=== PATIENT | female | born 1945 | race Two or more races ===

== ENCOUNTER → 2016-03-29 | Outpatient (CLI) | payer MEDICARE, OTHER ==
[~2016-03-29] MED LIST: ASPI81TA27 PO; ATEN-60 PO; GLIP-115 PO; LISI40TA PO; MELA3TAB42 PO; MELO-85 PO; METF1000 PO; RANITAB8 PO; SIMV10TA84 PO; TRIA0.1O TOP; [UNRECOGNIZED DRUG - CODE] PO
[2016-03-29 08:50] LABS: Basophils # (auto) 0 uL; Basophils % (auto) 0.4 % (0.0-2.0); Eosinophils # (auto) 0.3 uL; Eosinophils % (auto) 5.6 % (0.0-7.0); Hematocrit 47.1 % (36.0-46.0); Hemoglobin 15.5 g/dL (12.2-16.2); Lymphocytes # (auto) 1.5 uL; Lymphocytes % (auto) 32.3 % (10.0-50.0); Mean Corpuscular Hemoglobin 31.4 pg (28.0-32.0); Mean Platelet Volume 9.5 fL (7.4-10.4); Monocytes # (auto) 0.3 uL; Monocytes % (auto) 7.1 % (0.0-12.0); Neutrophils # (auto) 2.5 uL; Neutrophils % (auto) 54.6 % (37.0-80.0); Platelet Count (auto) 172 10^3/uL (140-450); Red Cell Distribution Width 13.3 % (11.6-16.0); White Blood Cell 4.6 10^3/uL (4.4-10.8)
[2016-03-29 09:04] LABS: Albumin 3.8 g/dL (3.4-5.0); BUN/Creatinine Ratio 24.6; Bilirubin, Total 0.7 mg/dL (0.2-1.0); Calcium 8.8 mg/dL (8.5-10.1); Potassium 4.2 mmol/L (3.5-5.1); Total Protein 6.9 g/dL (6.4-8.2)
== END | disposition home or self-care (01) ==
LOC: LAB 07:11
PROVIDERS: ATTEND Internal Medicine
DX: I10 Essential (primary) hypertension (principal); E11.9 Type 2 diabetes mellitus without complications; F41.1 Generalized anxiety disorder; E78.5 Hyperlipidemia, unspecified
CPT/HCPCS: 36415; 80053; 80061; 83036; 84443; 85025

== ENCOUNTER → 2016-12-09 | Day surgery (SDC) | payer MEDICARE ==
[2016-12-06 12:45] LABS: Basophils # (auto) 0 uL; Basophils % (auto) 0.5 % (0.0-2.0); Eosinophils # (auto) 0.2 uL; Eosinophils % (auto) 3.8 % (0.0-7.0); Hemoglobin 15.1 g/dL (12.2-16.2); Lymphocytes # (auto) 1.5 uL; Lymphocytes % (auto) 30.2 % (10.0-50.0); Mean Corpuscular Hemoglobin 32.6 pg (28.0-32.0); Mean Corpuscular Hgb Conc. 34.3 g/dL (32.0-36.0); Mean Corpuscular Volume 95.2 fL (80.0-100.0); Mean Platelet Volume 8.5 fL (6.9-10.8); Monocytes # (auto) 0.3 uL; Neutrophils # (auto) 2.8 uL; Neutrophils % (auto) 58.5 % (37.0-80.0); Nucleated Red Blood Cells % 0.1 %; Platelet Count (auto) 128 10^3/uL (140-450); White Blood Cell 4.8 10^3/uL (4.4-10.8)
[2016-12-06 12:57] LABS: INR 0.97 (0.9-1.15); Partial Thromboplastin Time 24.7 sec (22.64-33.71); Prothrombin Time 10.6 sec (9.37-12.3)
[~2016-12-09] VITALS: Ht 162.6 cm; Wt 95.3 kg
[~2016-12-09] MED LIST changes: -GLIP-115 PO; +SODIUM CHLORIDE LOCK 10 ML ONE; +diphenhdrAMINE HCL 50 MG/1 ML VL ONE
[2016-12-09] MEDS: fentaNYL CITRATE 100 MCG/2 ML VL ONE ×2 (09:09→09:12)
[2016-12-09] MEDS: MIDAZOLAM HCL 5 MG/ML-1ML VIAL ONE ×2 (09:09→09:12)
[2016-12-09 09:57] VITALS: BP 157/83
== END | disposition home or self-care (01) ==
LOC: GI 08:00
PROVIDERS: ATTEND Internal Medicine Gastroenterology
DX: D12.5 Benign neoplasm of sigmoid colon (principal); K62.1 Rectal polyp; K57.30 Diverticulosis of large intestine without perforation or abscess without bleeding; K64.8 Other hemorrhoids; K63.89 Other specified diseases of intestine; E11.9 Type 2 diabetes mellitus without complications; Z90.710 Acquired absence of both cervix and uterus
CPT/HCPCS: 36415; 45380; 82962; 85025; 85610; 85730; 88305; J1200; J2250; J3010; J7030

== ENCOUNTER → 2017-01-24 | Outpatient (CLI) | payer MEDICARE ==
[~2017-01-24] MED LIST changes: -MELO-85 PO; +MELO1TAB73 PO; -SODIUM CHLORIDE LOCK 10 ML ONE; -diphenhdrAMINE HCL 50 MG/1 ML VL ONE
[2017-01-24 12:26] LABS: Urine Bacteria NONE SEEN /hpf (None Seen); Urine Blood Negative /uL (Negative); Urine Mucus FEW (None Seen); Urine Specific Gravity 1.036 (1.001-1.035); Urine WBC 1 /hpf (0 - 5)
[2017-01-24 13:17] LABS: Albumin 3.8 g/dL (3.4-5.0); BUN/Creatinine Ratio 25.5; Calcium 8.8 mg/dL (8.5-10.1)
[2017-01-24 13:19] LABS: Bilirubin, Total 1.1 mg/dL (0.2-1.0)
== END | disposition home or self-care (01) ==
LOC: LAB 11:36
PROVIDERS: ATTEND Internal Medicine
DX: I10 Essential (primary) hypertension (principal); E11.9 Type 2 diabetes mellitus without complications; E55.9 Vitamin D deficiency, unspecified; N39.0 Urinary tract infection, site not specified
CPT/HCPCS: 36415; 80053; 81001; 82043; 82306; 83036; 86803

== ENCOUNTER → 2017-05-25 | Outpatient (CLI) | payer MEDICARE ==
[2017-05-25 10:43] LABS: Basophils # (auto) 0 uL; Basophils % (auto) 0.5 % (0.0-2.0); Eosinophils # (auto) 0.1 uL; Eosinophils % (auto) 2.9 % (0.0-7.0); Hematocrit 46.2 % (36.0-46.0); Hemoglobin 15.7 g/dL (12.2-16.2); Lymphocytes # (auto) 1.1 uL; Lymphocytes % (auto) 24.4 % (10.0-50.0); Mean Corpuscular Hemoglobin 32.9 pg (28.0-32.0); Mean Corpuscular Hgb Conc. 34.1 g/dL (32.0-36.0); Mean Corpuscular Volume 96.5 fL (80.0-100.0); Monocytes # (auto) 0.3 uL; Monocytes % (auto) 6.3 % (0.0-12.0); Neutrophils % (auto) 65.9 % (37.0-80.0); Nucleated Red Blood Cells % 0.2 %; Platelet Count (auto) 142 10^3/uL (140-450); Red Blood Cells 4.79 10^6/uL (4.0-5.20); Red Cell Distribution Width 13.4 % (11.8-14.3); White Blood Cell 4.6 10^3/uL (4.4-10.8)
[2017-05-25 10:59] LABS: BUN/Creatinine Ratio 32.8; Calcium 9.4 mg/dL (8.5-10.1); Potassium 4.3 mmol/L (3.5-5.1); Total Protein 7.1 g/dL (6.4-8.2)
== END | disposition home or self-care (01) ==
LOC: LAB 10:08
PROVIDERS: ATTEND Physician Assistant
DX: I10 Essential (primary) hypertension (principal); E11.65 Type 2 diabetes mellitus with hyperglycemia; K58.0 Irritable bowel syndrome with diarrhea; E78.5 Hyperlipidemia, unspecified
CPT/HCPCS: 36415; 80053; 80061; 83036; 85025

== ENCOUNTER → 2018-10-12 | Outpatient (CLI) | payer MEDICARE ==
[~2018-10-12] MED LIST changes: +ASPI-404 PO; -ASPI81TA27 PO
[2018-10-12 10:32] LABS: Basophils # (auto) 0 uL; Basophils % (auto) 0.9 % (0.0-2.0); Eosinophils # (auto) 0.5 uL; Eosinophils % (auto) 9.7 % (0.0-7.0); Hematocrit 44.6 % (36.0-46.0); Hemoglobin 15.3 g/dL (12.2-16.2); Lymphocytes # (auto) 1.3 uL; Lymphocytes % (auto) 28.5 % (10.0-50.0); Mean Corpuscular Hemoglobin 32.9 pg (28.0-32.0); Mean Corpuscular Hgb Conc. 34.4 g/dL (32.0-36.0); Mean Corpuscular Volume 95.5 fL (80.0-100.0); Monocytes # (auto) 0.3 uL; Monocytes % (auto) 5.9 % (0.0-12.0); Neutrophils # (auto) 2.6 uL; Nucleated Red Blood Cells % 0.1 %; Platelet Count (auto) 130 10^3/uL (140-450); Red Blood Cells 4.67 10^6/uL (4.0-5.20); Red Cell Distribution Width 13.1 % (11.8-14.3); White Blood Cell 4.7 10^3/uL (4.4-10.8)
[2018-10-12 10:52] LABS: Albumin 3.7 g/dL (3.4-5.0); Potassium 4.1 mmol/L (3.5-5.1)
[2018-10-12 10:57] LABS: Bilirubin, Total 0.9 mg/dL (0.2-1.0); Total Protein 6.8 g/dL (6.4-8.2)
[2018-10-12 11:10] LABS: Urine Bacteria NONE SEEN /hpf (None Seen); Urine Blood Negative /uL (Negative); Urine Specific Gravity 1.033 (1.001-1.035); Urine WBC 20 /hpf (0 - 5)
== END | disposition home or self-care (01) ==
LOC: LAB 10:09
PROVIDERS: ATTEND Physician Assistant
DX: E78.5 Hyperlipidemia, unspecified (principal); I42.9 Cardiomyopathy, unspecified; E11.65 Type 2 diabetes mellitus with hyperglycemia; D69.6 Thrombocytopenia, unspecified; I10 Essential (primary) hypertension
CPT/HCPCS: 36415; 80053; 80061; 81001; 83036; 85025

== ENCOUNTER → 2020-12-24 | Outpatient (CLI) | payer OTHER ==
[~2020-12-24] MED LIST changes: -ASPI-404 PO; +ASPI-543 PO; -LISI40TA PO; +LISI40TA11 PO
== END | disposition home or self-care (01) ==
LOC: LAB 12:31
PROVIDERS: ATTEND Nurse Practitioner Family
DX: Z20.822 Contact with and (suspected) exposure to COVID-19 (principal)
CPT/HCPCS: C9803; U0003

== ENCOUNTER → 2021-04-06 | Outpatient (CLI) | payer OTHER | END | disposition home or self-care (01) | LOC: XYW 10:42 | PROVIDERS: ATTEND Internal Medicine | DX: I05.0 Rheumatic mitral stenosis (principal); I35.0 Nonrheumatic aortic (valve) stenosis | CPT/HCPCS: 93306 ==

== ENCOUNTER → 2021-04-26 | Outpatient (CLI) | payer OTHER ==
[~2021-04-26] VITALS: Ht 162.6 cm; Wt 84.8 kg
[~2021-04-26] MED LIST changes: +ADENOSINE 71 MG in GIVE UN-DILUTED 0 ML IV STA
[2021-04-26 09:44] VITALS: BP 114/56
== END | disposition home or self-care (01) ==
LOC: XY 08:24
PROVIDERS: ATTEND Internal Medicine
DX: I10 Essential (primary) hypertension (principal); R06.02 Shortness of breath; R94.31 Abnormal electrocardiogram [ECG] [EKG]; I44.7 Left bundle-branch block, unspecified; Z87.09 Personal history of other diseases of the respiratory system
CPT/HCPCS: 78452; 93017; A9500; J0153

== ENCOUNTER → 2021-11-15 | Outpatient (CLI) | payer OTHER ==
[~2021-11-15] MED LIST changes: -ADENOSINE 71 MG in GIVE UN-DILUTED 0 ML IV STA
[2021-11-15 10:42] LABS: Basophils # (auto) 0 10 ^3/uL (0-0.2); Basophils % (auto) 0.7 % (0.0-2.0); Eosinophils # (auto) 0.3 10 ^3/uL (0-0.8); Eosinophils % (auto) 5.8 % (0.0-7.0); Hematocrit 44.6 % (36.0-46.0); Hemoglobin 15.1 g/dL (12.2-16.2); Lymphocytes # (auto) 1.3 10 ^3/uL (0.4-5.4); Lymphocytes % (auto) 26.6 % (10.0-50.0); Mean Corpuscular Hemoglobin 32.3 pg (28.0-32.0); Mean Corpuscular Hgb Conc. 33.9 g/dL (32.0-36.0); Mean Corpuscular Volume 95.3 fL (80.0-100.0); Monocytes # (auto) 0.4 10 ^3/uL (0-1.3); Monocytes % (auto) 7.4 % (0.0-12.0); Neutrophils # (auto) 2.8 10 ^3/uL (1.6-8.6); Neutrophils % (auto) 59.5 % (37.0-80.0); Red Blood Cells 4.68 10^6/uL (4.0-5.20); Red Cell Distribution Width 13.8 % (11.8-14.3); White Blood Cell 4.8 10^3/uL (4.4-10.8)
[2021-11-15 11:13] LABS: Albumin 3.9 g/dL (3.4-5.0); Calcium 9.5 mg/dL (8.5-10.1); Potassium 4.4 mmol/L (3.5-5.1)
[2021-11-15 11:17] LABS: BUN/Creatinine Ratio 31.1; Bilirubin, Total 0.7 mg/dL (0.2-1.0); Total Protein 7.1 g/dL (6.4-8.2)
== END | disposition home or self-care (01) ==
LOC: LAB 10:07
PROVIDERS: ATTEND Nurse Practitioner Family
DX: I10 Essential (primary) hypertension (principal); Z00.00 Encounter for general adult medical examination without abnormal findings; F41.1 Generalized anxiety disorder; E11.9 Type 2 diabetes mellitus without complications
CPT/HCPCS: 36415; 80053; 80061; 83036; 84439; 84443; 85025

== ENCOUNTER → 2022-01-06 | Outpatient (CLI) | payer OTHER | END | disposition home or self-care (01) | LOC: LAB 13:07 | PROVIDERS: ATTEND Urology | DX: R31.9 Hematuria, unspecified (principal); N39.0 Urinary tract infection, site not specified; R32 Unspecified urinary incontinence ==

== ENCOUNTER → 2022-02-16 | Outpatient (CLI) | payer OTHER ==
[2022-02-16 19:04] LABS: Urine Blood Negative /uL (Negative)
[2022-02-16 19:05] LABS: Urine Bacteria MODERATE /hpf (None Seen)
[2022-02-16 19:07] LABS: Urine Budding Yeast Few /hpf (None Seen)
== END | disposition home or self-care (01) ==
LOC: LAB 11:48
PROVIDERS: ATTEND Urology
DX: E11.65 Type 2 diabetes mellitus with hyperglycemia (principal); R31.0 Gross hematuria; N39.0 Urinary tract infection, site not specified
CPT/HCPCS: 81001; 87086

== ENCOUNTER → 2022-02-18 | Outpatient (CLI) | payer OTHER ==
[2022-02-18 08:33] LABS: Urine Bacteria None Seen /hpf (None Seen)
[2022-02-18 08:59] LABS: Urine Blood Negative /uL (Negative); Urine Specific Gravity 1.036 (1.001-1.035)
== END | disposition home or self-care (01) ==
LOC: LAB 08:30
PROVIDERS: ATTEND Urology
DX: R31.0 Gross hematuria (principal); N39.0 Urinary tract infection, site not specified
CPT/HCPCS: 81001; 87086

== ENCOUNTER 2022-09-08 06:29 | Day surgery (SDC) | payer OTHER ==
[2022-08-12 10:56] LABS: Basophils # (auto) 0 10 ^3/uL (0-0.2); Basophils % (auto) 0.7 % (0.0-2.0); Eosinophils # (auto) 0.8 10 ^3/uL (0-0.8); Eosinophils % (auto) 10.9 % (0.0-7.0); Hematocrit 43.6 % (36.0-46.0); Hemoglobin 15.5 g/dL (12.2-16.2); Lymphocytes # (auto) 1.2 10 ^3/uL (0.4-5.4); Mean Corpuscular Hemoglobin 33.2 pg (28.0-32.0); Mean Corpuscular Hgb Conc. 35.5 g/dL (32.0-36.0); Mean Corpuscular Volume 93.5 fL (80.0-100.0); Monocytes # (auto) 0.4 10 ^3/uL (0-1.3); Monocytes % (auto) 5.8 % (0.0-12.0); Neutrophils # (auto) 4.9 10 ^3/uL (1.6-8.6); Neutrophils % (auto) 66.6 % (37.0-80.0); Nucleated Red Blood Cells % 0.9 %; Red Blood Cells 4.66 10^6/uL (4.0-5.20); Red Cell Distribution Width 13.1 % (11.8-14.3); White Blood Cell 7.4 10^3/uL (4.4-10.8)
[2022-08-12 10:59] LABS: Urine Bacteria FEW /hpf (None Seen); Urine Blood Negative /uL (Negative); Urine Specific Gravity 1.028 (1.001-1.035); Urine WBC 55 /hpf (0 - 5)
[2022-08-12 11:06] LABS: Albumin 3.8 g/dL (3.4-5.0); Calcium 9.1 mg/dL (8.5-10.1); Potassium 3.9 mmol/L (3.5-5.1)
[2022-08-12 11:10] LABS: BUN/Creatinine Ratio 26.5 (10.0-20.0); Bilirubin, Total 0.7 mg/dL (0.2-1.0); Total Protein 7.2 g/dL (6.4-8.2)
[2022-08-12 11:16] LABS: INR 0.97 (0.9-1.15); Partial Thromboplastin Time 25.9 sec (24.6-33.4)
[2022-09-06 15:59] LABS: Urine Bacteria NONE SEEN /hpf (None Seen); Urine Blood TRACE /uL (Negative); Urine Specific Gravity 1.016 (1.001-1.035); Urine WBC 62 /hpf (0 - 5)
[2022-09-06 16:00] LABS: Basophils # (auto) 0 10 ^3/uL (0-0.2); Basophils % (auto) 0.8 % (0.0-2.0); Eosinophils # (auto) 0.4 10 ^3/uL (0-0.8); Eosinophils % (auto) 7.1 % (0.0-7.0); Hematocrit 44.7 % (36.0-46.0); Hemoglobin 15.2 g/dL (12.2-16.2); Lymphocytes # (auto) 1.7 10 ^3/uL (0.4-5.4); Lymphocytes % (auto) 28.8 % (10.0-50.0); Mean Corpuscular Hemoglobin 32.3 pg (28.0-32.0); Monocytes # (auto) 0.3 10 ^3/uL (0-1.3); Monocytes % (auto) 5.9 % (0.0-12.0); Neutrophils # (auto) 3.4 10 ^3/uL (1.6-8.6); Neutrophils % (auto) 57.4 % (37.0-80.0); Nucleated Red Blood Cells % 0.2 %; Red Blood Cells 4.71 10^6/uL (4.0-5.20); Red Cell Distribution Width 14.3 % (11.8-14.3); White Blood Cell 5.9 10^3/uL (4.4-10.8)
[2022-09-06 16:15] LABS: Partial Thromboplastin Time 25.5 sec (24.6-33.4)
[2022-09-06 16:20] LABS: Calcium 8.8 mg/dL (8.5-10.1); Potassium 4.1 mmol/L (3.5-5.1)
[2022-09-06 16:22] LABS: Bilirubin, Total 0.8 mg/dL (0.2-1.0); Total Protein 7.2 g/dL (6.4-8.2)
[~2022-09-08] VITALS: Ht 162.6 cm; Wt 81.6 kg
[~2022-09-08 06:29] MED LIST changes: +EMPA1TAB3 PO; -LISI40TA11 PO; +LISI40TA16 PO; -MELA3TAB42 PO; -MELO1TAB73 PO; +MELO7.5T7 PO; +PANT40TA2 PO; -RANITAB8 PO; +SIMV10TA20 PO; -SIMV10TA84 PO; +VENL1TAB97 PO; -[UNRECOGNIZED DRUG - CODE] PO
[2022-09-08] MEDS ORDERED: LIDOCAINE W/ EPINEPHRINE 2% INJ 20ML VIAL ONE (07:08)
[2022-09-08] MEDS ORDERED: CIPROFLOXACIN 400MG/200ML 200 ML IV ONE (07:29)
[2022-09-08] MEDS ORDERED: MIDAZOLAM HCL 2MG/2ML 2ml VIAL (1mg/ml) ONE (07:44)
[2022-09-08] MEDS ORDERED: fentaNYL CITRATE 100 MCG/2 ML VL ONE (07:44)
[2022-09-08] MEDS ORDERED: MEPERIDINE HCL (25 MG/ML) 1ML VIAL ONE (07:44)
[2022-09-08] MEDS ORDERED: PROPOFOL 10 MG/ML 20 ML IV ONE (08:03)
[2022-09-08] MEDS ORDERED: DexAMETHasone SOD PHOS 10MG/1ML VIAL INJ ONE (08:03)
[2022-09-08] MEDS ORDERED: ePHEDrine SULFATE 50 MG/ML AMP IV PRN (08:30)
[2022-09-08] MEDS ORDERED: LABETALOL HCL 5 MG/ML 4ML SYRINGE IV PRN (08:30)
[2022-09-08] MEDS ORDERED: MIDAZOLAM HCL 2MG/2ML 2ml VIAL (1mg/ml) IV PRN (08:30)
[2022-09-08] MEDS ORDERED: fentaNYL CITRATE 100 MCG/2 ML VL IV PRN (08:30)
[2022-09-08] MEDS ORDERED: MORPHINE SULFATE INJ 2 MG/ml SYRG IV PRN (08:30)
[2022-09-08] MEDS ORDERED: ONDANSETRON HCL 4 MG/2 ML VIAL IV PRN (08:30)
[2022-09-08 09:15] VITALS: BP 134/56
== END 2022-09-08 09:30 | disposition home or self-care (01) ==
LOC: SUR 06:29
PROVIDERS: ATTEND Urology
DX: N39.3 Stress incontinence (female) (male) (principal); I10 Essential (primary) hypertension; E11.9 Type 2 diabetes mellitus without complications; Z79.84 Long term (current) use of oral hypoglycemic drugs; Z79.899 Other long term (current) drug therapy
CPT/HCPCS: 36415; 51715; 74018; 76000; 80053; 81001; 82962; 85025; 85610; 85730; 87086; 87088; 87186; J0744; J1100; J2175; J2250; J2704; J3010; L8606

== ENCOUNTER → 2022-11-01 | Outpatient (CLI) | payer OTHER ==
[2022-11-01 10:34] LABS: Hematocrit 44.4 % (36.0-46.0); Mean Corpuscular Hemoglobin 32.3 pg (28.0-32.0); Mean Corpuscular Hgb Conc. 33.8 g/dL (32.0-36.0); Mean Corpuscular Volume 95.8 fL (80.0-100.0); Red Blood Cells 4.64 10^6/uL (4.0-5.20); Red Cell Distribution Width 13.2 % (11.8-14.3); White Blood Cell 5.5 10^3/uL (4.4-10.8)
[2022-11-01 10:47] LABS: Band Neutrophils % (manual) 0; Basophils % (manual) 0 (0.0-2.0); Metamyelocytes % 0; Myelocytes % 0
[2022-11-01 10:48] LABS: Blast Cells 0; Promyelocytes % 0; Reactive Lymphocytes 0
[2022-11-01 12:00] LABS: Albumin 3.7 g/dL (3.4-5.0); BUN/Creatinine Ratio 26.1 (10.0-20.0); Bilirubin, Total 0.6 mg/dL (0.2-1.0); Calcium 9.2 mg/dL (8.5-10.1); Potassium 4.5 mmol/L (3.5-5.1); Total Protein 6.6 g/dL (6.4-8.2)
[2022-11-01 12:43] LABS: Micro Albumin 10.5 mg/L (0-30.0)
[2022-11-01 14:01] LABS: Eosinophils % (manual) 20 (0-7); Lymphocytes % (manual) 17 (10.0-50.0); Monocytes % (manual) 5 (0-12); Platelet Estimate Decreased
== END | disposition home or self-care (01) ==
LOC: LAB 09:58
DX: E11.39 Type 2 diabetes mellitus with other diabetic ophthalmic complication (principal); E78.5 Hyperlipidemia, unspecified; E66.01 Morbid (severe) obesity due to excess calories
CPT/HCPCS: 36415; 80053; 80061; 82043; 82306; 82570; 83036; 84439; 84443; 85007; 85027

== ENCOUNTER → 2023-12-27 | Outpatient (CLI) | payer OTHER ==
[2023-12-27 12:02] LABS: Basophils # (auto) 0.1 10 ^3/uL (0-0.2); Basophils % (auto) 1.2 % (0.0-2.0); Eosinophils # (auto) 0.3 10 ^3/uL (0-0.8); Eosinophils % (auto) 6.8 % (0.0-7.0); Hematocrit 44.9 % (36.0-46.0); Hemoglobin 15.6 g/dL (12.2-16.2); Lymphocytes # (auto) 1.3 10 ^3/uL (0.4-5.4); Lymphocytes % (auto) 27.2 % (10.0-50.0); Mean Corpuscular Hemoglobin 33.1 pg (28.0-32.0); Mean Corpuscular Hgb Conc. 34.8 g/dL (32.0-36.0); Monocytes # (auto) 0.3 10 ^3/uL (0-1.3); Monocytes % (auto) 6.7 % (0.0-12.0); Neutrophils # (auto) 2.7 10 ^3/uL (1.6-8.6); Neutrophils % (auto) 58.1 % (37.0-80.0); Nucleated Red Blood Cells % 0.1 %; Platelet Count (auto) 137 10^3/uL (140-450); Red Blood Cells 4.73 10^6/uL (4.0-5.20); Red Cell Distribution Width 13.7 % (11.8-14.3); White Blood Cell 4.7 10^3/uL (4.4-10.8)
[2023-12-27 12:23] LABS: Alanine Aminotransferase 17 U/L (7-40); Alkaline Phosphatase 58 U/L (46-116); Anion Gap 7 (5-15); BUN/Creatinine Ratio 20.8 (10.0-20.0); Blood Urea Nitrogen 15 mg/dL (9-23); Calcium 10.1 mg/dL (8.7-10.4); Carbon Dioxide 26 mmol/L (20-31); Chloride 108 mmol/L (98-107); Glucose 199 mg/dL (74-106); LDL Cholesterol 68 mg/dL (< 100); Potassium 4.6 mmol/L (3.5-5.1); Sodium 141 mmol/L (136-145); Triglycerides 58 mg/dL (< 150)
[2023-12-27 12:24] LABS: Albumin 4.3 g/dL (3.2-4.8); Aspartate Aminotransferase 14 U/L (13-40); Cholesterol 125 mg/dL (< 200)
[2023-12-27 12:25] LABS: Bilirubin, Total 0.7 mg/dL (0.2-1.0); HDL Cholesterol 48 mg/dL (40-59); Total Protein 6.4 g/dL (5.7-8.2)
[2023-12-27 13:31] LABS: Creatinine, Urine 26.95 mg/dL (30.0-125.0)
== END | disposition home or self-care (01) ==
LOC: LAB 11:21
PROVIDERS: ATTEND Nurse Practitioner Family
DX: E11.65 Type 2 diabetes mellitus with hyperglycemia (principal); I42.9 Cardiomyopathy, unspecified; E66.9 Obesity, unspecified
CPT/HCPCS: 36415; 80053; 80061; 82043; 82306; 82570; 83036; 84443; 85025

== ENCOUNTER → 2024-04-01 | Outpatient (CLI) | payer OTHER ==
[2024-04-01 13:04] LABS: Urine Bacteria FEW /hpf (None Seen); Urine Blood 2+ /uL (Negative); Urine Clarity Turbid (Clear); Urine Color Colorless (Yellow); Urine Protein, UAD 1+ (Negative); Urine Specific Gravity 1.034 (1.001-1.035); Urine Squamous Epithelial Cell None Seen /hpf (<5); Urine Urobilinogen Normal (Negative); Urine WBC 695 /hpf (0 - 5); Urine WBC Clumps PRESENT /hpf (None Seen); Urine pH 5.5 (5.0-9.0)
== END | disposition home or self-care (01) ==
LOC: LAB 06:42
PROVIDERS: ATTEND Registered Nurse
DX: R82.90 Unspecified abnormal findings in urine (principal); R30.9 Painful micturition, unspecified
CPT/HCPCS: 81001; 87086

== ENCOUNTER 2024-10-21 13:12 | Inpatient (IN) | payer OTHER ==
[~2024-10-21] VITALS: Ht 162.6 cm; Wt 74.0 kg
--- NOTE | 2024-10-21 13:53 | ED.PDOC ---
SOB-HPI HPI Comments This is a 79 year old female presenting to the ED with chief complaint of SOB. Patient reports that she has been experiencing dizziness with associated generalized weakness since , however she stated to have SOB since last Monday. Patient states that her symptoms resolved themselves over time, but returned today. Patient denies any chest pain, headache, N/V, hemoptysis, nasal congestion, fever, or chills. Chief Complaint: Shortness of Breath Time Seen by MD: 13:51 Reviewed notes: Nurses Notes, Medications, Allergies Information Source: Patient Mode of Arrival: Ambulatory Severity: Moderate Timing: Days Duration: Since onset Context: At Rest PE Risk Factors: None History of: None Prehospital treatment: None Modifying Factors: Nothing Past Medical History PAST MEDICAL HISTORY: Cancer, DM, High Lipids, HTN Surgical History: Hysterectomy PLATE CLEANER History: Denies all PLATE CLEANER Hx Family History Family History: Reviewed,noncontributory to illness Social History Smoker: Non-Smoker Alcohol: Denies ETOH Use Drugs: Denies Drug Use Lives In: Home Constitutional: reports: weakness; denies: chills, diaphoresis, fatigue, fever, malaise, sweats, others EENTM: denies: blurred vision, double vision, ear bleeding, ear discharge, ear drainage, ear pain, ear ringing, eye pain, eye redness, hearing loss, mouth pain, mouth swelling, nasal discharge, nose bleeding, nose congestion, nose pain, photophobia, tearing, throat pain, throat swelling, voice changes, others Respiratory: reports: shortness of breath; denies: cough, hemoptysis, orthopnea, SOB at rest, SOB with excertion, stridor, wheezing, others Cardiovascular: denies: chest pain, dizzy spells, diaphoresis, Dyspnea on exertion, edema, irregular heart beat, left arm pain, lightheadedness, palpitations, PND, syncope, others Gastrointestinal: denies: abdomen distended, abdominal pain, blood streaked bowels, constipated, diarrhea, dysphagia, difficulty swallowing, hematemesis, melena, nausea, poor appetite, poor fluid intake, rectal bleeding, rectal pain, vomiting, others Genitourinary: denies: abnormal vagina bleeding, burning, dyspareunia, dysuria, flank pain, frequency, hematuria, incontinence, pain, , vagina discharge, urgency, others Neurological: reports: dizziness; denies: fainting, headache, left sided numbness, left sided weakness, numbness, paresthesia, pre-existing deficit, right sided numbness, right sided weakness, seizure, speech problems, tingling, tremors, weakness, others Musculoskeletal: denies: back pain, gout, joint pain, joint swelling, muscle pain, muscle stiffness, neck pain, others Integumetry: denies: bruises, change in color, change in hair/nails, dryness, laceration, lesions, lumps, rash, wounds, others Allergic/Immunocompromised: denies: Difficulty Healing, Frequent Infections, Hives, Itching, others Hematologic/Lymphatic: denies: anemia, blood clots, easy bleeding, easy bruising, swollen glands, others Endocrine: denies: excessive hunger, excessive sweating, excessive thirst, excessive urination, flushing, intolerance to cold, intolerance to heat, unexplained weight gain, unexplained weight loss, others Psychiatric: denies: anxiety, bipolar disorder, depression, hopeless, panic disorder, schizophrenia, sleepless, suicidal, others All Other Systems: Reviewed and Negative Physical Exam General Appearance: Moderate Distress, Normal HEENT: Normal ENT Inspection, Pharynx Normal, TMs Normal Neck: Full Range of Motion, Non-Tender, Normal, Normal Inspection Respiratory: Chest Non-Tender, Lungs Clear, No Accessory Muscle Use, No Respiratory Distress, Normal Breath Sounds Cardiovascular: No Edema, No JVD, No Murmur, No Gallop, Normal Peripheral Pulses, Regular Rate/Rhythm Breast Exam: Deferred Gastrointestinal: No Organomegaly, Non Tender, No Pulsatile Mass, Normal Bowel Sounds, Soft Genitalia: Deferred Pelvic: Deferred Rectal: Deferred Extremities: No calf tenderness, Normal capillary refill, Normal inspection, N ormal range of motion, Non-tender, No pedal edema Musculoskeletal : Apperance: Normal Neurologic: Alert, cashier assistant II-XII nml as Tested, No Motor Deficits, Normal Affect, Normal Mood, No Sensory Deficits Cerebellar Function: NOT DONE Reflexes: NOT DONE Skin: Dry, Normal Color, Warm Peripheral Pulses: 3+ Radial (R), 3+ Radial (L) Lymphatic: No Adenopathy Was a procedure done? Was a procedure done?: No Differential Dx Differential Diagnosis: Anxiety, Asthma, Bronchitis, CHF, COPD X-Ray, Labs, Meds, VS Vital Signs Date Time Temp Pulse Resp B/P (MAP) Pulse Ox O2 Delivery O2 Flow Rate FiO2 10/21/24 14:20 113 10/21/24 13:13 98.0 120 15 117/71 98 98.0 Lab Test 10/21/24 14:08 Range/Units White Blood Count 7.2 4.4-10.8 10^3/uL Red Blood Count 4.48 4.0-5.20 10^6/uL Hemoglobin 14.7 12.2-16.2 g/dL Hematocrit 41.4 36.0-46.0 % Mean Corpuscular Volume 92.5 80.0-100.0 fL Mean Corpuscular Hemoglobin 32.8 H 28.0-32.0 pg Mean Corpuscular Hemoglobin Concent 35.5 32.0-36.0 g/dL Red Cell Distribution Width 14.9 H 11.8-14.3 % Platelet Count 146 140-450 10^3/uL Mean Platelet Volume 9.7 6.9-10.8 fL Neutrophils (%) (Auto) 79.3 37.0-80.0 % Lymphocytes (%) (Auto) 11.3 10.0-50.0 % Monocytes (%) (Auto) 8.3 0.0-12.0 % Eosinophils (%) (Auto) 0.8 0.0-7.0 % Basophils (%) (Auto) 0.3 0.0-2.0 % Neutrophils # (Auto) 5.7 1.6-8.6 10 ^3/uL Lymphocytes # (Auto) 0.8 0.4-5.4 10 ^3/uL Monocytes # (Auto) 0.6 0-1.3 10 ^3/uL Eosinophils # (Auto) 0.1 0-0.8 10 ^3/uL Basophils # (Auto) 0 0-0.2 10 ^3/uL Nucleated Red Blood Cells 0.0 % Sodium Level 131 L 136-145 mmol/L Potassium Level 3.7 3.5-5.1 mmol/L Chloride Level 96 L 98-107 mmol/L Carbon Dioxide Level 18 L 20-31 mmol/L Anion Gap 17 H 5-15 Blood Urea Nitrogen 23 9-23 mg/dL Creatinine 1.00 0.550-1.02 mg/dL Glomerular Filtration Rate Calc 58 >90 mL/min BUN/Creatinine Ratio 23.0 H 10.0-20.0 Serum Glucose 348 H 74-106 mg/dL Calcium Level 9.5 8.7-10.4 mg/dL Troponin I High Sensitivity 202 *H </=34 ng/L B-Type Natriuretic Peptide 506.13 0-100 pg/mL Time of 1ST Reevaluation: 14:49 Reevaluation 1ST: Unchanged Patient Education/Counseling: Diagnosis, Treatment Family Education/Counseling: No Family Present SEPSIS Sepsis Screen Date sepsis recognized/suspect: Oct 21, 2024 Time Sepsis recognized/suspect: 1314 Recent Procedure: No On Antibiotic Therapy: No Respiratory Rate >20: No Heart Rate >90: Yes Temp<36 C (96.8 F) or >38.3 C: No SBP <90 or MAP <65 mmHG: No New Acute Mental Status Change: No Is the patient on CPAP, BIPAP,: No Physician Orders Chest Portable (10/21/24 13:50) Urinalysis (10/21/24 13:50) Electrocardigram (10/21/24 14:43) Vital Signs Date Time Temp Pulse Resp B/P (MAP) Pulse Ox O2 Delivery O2 Flow Rate FiO2 10/21/24 14:20 113 10/21/24 13:13 98.0 120 15 117/71 98 98.0 Laboratory Tests Test 10/21/24 14:08 White Blood Count 7.2 10^3/uL (4.4-10.8) Departure 1 Departure Time of Disposition: 16:57 Impression: Primary Impression: CHF (congestive heart failure) Qualified Codes: I50.43 - Acute on chronic combined systolic (congestive) and diastolic (congestive) heart failure Additional Impression: Demand ischemia Disposition: 09 ADMITTED INPATIENT Admit to: Med Surg Condition: Guarded Critical Care Note Critical Care Time?: Yes (90 min-critical care time only) Stability Stability form required: No Heart Score Heart Score: Heart Score Response (Comments) Value History Slightly Suspicious 0 EKG Normal 0 Age >65 2 Risk Factors >3 or Hx ASHD 2 Troponin >3 x's Normal limit 2 Total 6 I personally scribed for RIC COON MD ([email or web address]) on 10/21/24 at 13:53. Electronically submitted by Rafael Coronado ([email or web address]). RIC COON MD Oct 21, 2024 13:53
--- NOTE | 2024-10-21 14:24 | DVH ---
CHEST RADIOGRAPH Indication: sob Technique: Single frontal view of the chest was obtained Comparison: None FINDINGS: Lines and Tubes: None Lungs: Mildly prominent interstitial markings bilaterally. Pleura: No effusion. No pneumothorax. Cardiomediastinal contours: Unremarkable Bones: No acute osseous abnormality. IMPRESSION: 1. Mildly prominent interstitial markings bilaterally may be chronic disease. There are no previous films for comparison.
[2024-10-21 14:41] LABS: Hematocrit 41.4 % (36.0-46.0); Hemoglobin 14.7 g/dL (12.2-16.2); Mean Corpuscular Hemoglobin 32.8 pg (28.0-32.0); Mean Corpuscular Volume 92.5 fL (80.0-100.0); Nucleated Red Blood Cells % 0.0 %
[2024-10-21 14:44] LABS: Potassium 3.7 mmol/L (3.5-5.1)
[2024-10-21 14:45] LABS: Anion Gap 17 (5-15); Calcium 9.5 mg/dL (8.7-10.4)
[2024-10-21 14:50] LABS: BUN/Creatinine Ratio 23.0 (10.0-20.0)
[2024-10-21 14:53] LABS: Blood Urea Nitrogen 23 mg/dL (9-23); Carbon Dioxide 18 mmol/L (20-31); Chloride 96 mmol/L (98-107); Glucose 348 mg/dL (74-106); Sodium 131 mmol/L (136-145)
[2024-10-21] MEDS: ENOXAPARIN SOD 80 MG/0.8ML SYRINGE SC ONE (17:50)
[2024-10-21] MEDS ORDERED: MORPHINE SULFATE INJ 2 MG/ml SYRG IV PRN (19:45)
[2024-10-21] MEDS ORDERED: NITROGLYCERIN 0.4 MG SL TAB SL PRN (19:45)
[2024-10-21] MEDS ORDERED: ONDANSETRON HCL 4 MG/2 ML VIAL IV PRN (19:45)
[2024-10-21] MEDS ORDERED: DEXTROSE (50%) 50ML SYRG IV PRN (19:45)
[2024-10-21] MEDS: FUROSEMIDE 40 MG/4 ML VIAL IV ONE (20:15)
--- NOTE | 2024-10-21 20:33 | ECG ---
[facility] Test Date: 2024-10-21 Test Time: 14:20:59 Pat Name: JUDY FLANNERY Department: [facility] ED Patient ID: [id number] Room: [address] [place] [address] Gender: F Naprapath: KIMMIE : 1945 Requested By: RIC COON Order Number: [id number] Reading MD: Rigoberto Sims Measurements Intervals [place] Rate: 113 P: 0 RI: 64 QRS: 107 QRSD: 133 T: 29 QT: 340 QTc: 467 Interpretive Statements Sinus tachycardia Atrial premature complexes Nonspecific intraventricular conduction delay Anteroseptal infarct, old Borderline repolarization abnormality Borderline ST elevation, lateral leads Electronically Signed On 10-21-2024 22:12:17 PDT by Rigoberto Sims Please click the below link to view image of tracing.
[2024-10-21 21:12] LABS: Potassium 3.9 mmol/L (3.5-5.1)
[2024-10-21 21:13] LABS: Anion Gap 18 (5-15); Calcium 9.9 mg/dL (8.7-10.4)
[2024-10-21 21:18] LABS: BUN/Creatinine Ratio 21.3 (10.0-20.0); Blood Urea Nitrogen 23 mg/dL (9-23)
[2024-10-21 21:33] LABS: Carbon Dioxide 20 mmol/L (20-31); Chloride 97 mmol/L (98-107); Glucose 338 mg/dL (74-106); Sodium 135 mmol/L (136-145)
[2024-10-21 21:52] LABS: Urine Budding Yeast OCCASIONAL /hpf (None Seen); Urine Protein, UAD TRACE (Negative); Urine WBC Clumps PRESENT /hpf (None Seen)
--- NOTE | 2024-10-21 22:17 | DVHHP2 ---
History of Present Illness Reason for Visit: Shortness for breath History of Present Illness 79-year-old female presents for evaluation of shortness for breath. Patient reports a five day history of worsening shortness for breath with associated lower extremity swelling. She reports becoming extremely fatigued with mild exertion. Denies cough or fever. No chest pain. Past Medical History Dyslipidemia, hypertension, diabetes mellitus, cancer Past Surgical History Hysterectomy Family History Denies Smoke: No ALCOHOL: none Drugs: None Lives: with Family Review of Systems Review of Systems Review of systems are currently negative otherwise addressed in HPI. Allergies: Coded Allergies: Acetaminophen (Verified Allergy, Unknown, 04/26/21) Hydrocodone (Verified Allergy, Unknown, 04/26/21) Sulfa Antibiotics (Verified Allergy, Unknown, 04/26/21) Medications Current Medications Medications Dose Ordered Sig/Rachell Route Start Time Stop Time Status Last Admin Dose Admin Empaglifozin 10 mg DAILY PO 10/22/24 10:00 Lisinopril 40 mg DAILY PO 10/22/24 10:00 Atenolol 25 mg DAILY PO 10/22/24 10:00 Aspirin 162 mg DAILY PO 10/22/24 10:00 Atorvastatin Calcium 10 mg HS PO 10/21/24 22:00 Diagnostic Test (Pha) 1 strip ACHS 10/21/24 22:00 Insulin Human Regular ACHS SC 10/21/24 22:00 Dextrose 50 ml UD PRN IV 10/21/24 19:45 Ondansetron HCl 4 mg Q4HP PRN IV 10/21/24 19:45 Nitroglycerin 0.4 mg Q5MINP PRN SL 10/21/24 19:45 Morphine Sulfate 2 mg Q30M PRN IV 10/21/24 19:45 Furosemide 20 mg DAILY IV 10/22/24 10:00 Exam Vital Signs Vital Signs Date Time Temp Pulse Resp B/P (MAP) Pulse Ox O2 Delivery O2 Flow Rate FiO2 10/21/24 20:45 98.1 111 24 114/65 (81) 97 98.1 Exam Gen: 79-year-old female in mild distress Skin: Warm, dry, normal color and texture, no rash. HEENT: Normocephalic atraumatic, mucous membranes moist and pink. Neck: Cervical and supraclavicular nodes normal without enlargement, trachea is midline, thyroid gland is normal without masses. Pulmonary: Clear to auscultation and percussion bilaterally. Cardiac: Regular rate and rhythm. No murmur Abdomen: Soft, nontender, nondistended, bowel sounds present all 4 quadrants, no guarding, no rigidity, no organomegaly. Extremities: No cyanosis, clubbing, no edema Neuro: Cranial nerves II through XII grossly intact, normal affect and speech, no focal motor deficits. Labs/Xrays ORDERING PHYSICIAN: RIC COON MD PROCEDURE(s): CXRP - CHEST PORTABLE REASON: sob ORDER NUMBER(s): [id number], ACCESSION NUMBER(s): [id number] CHEST RADIOGRAPH Indication: sob Technique: Single frontal view of the chest was obtained Comparison: None FINDINGS: Lines and Tubes: None Lungs: Mildly prominent interstitial markings bilaterally. Pleura: No effusion. No pneumothorax. Cardiomediastinal contours: Unremarkable Bones: No acute osseous abnormality. IMPRESSION: 1. Mildly prominent interstitial markings bilaterally may be chronic disease. There are no previous films for comparison. Labs Test 10/21/24 21:30 10/21/24 20:47 10/21/24 18:59 10/21/24 14:08 Range/Units Urine Color Colorless Yellow Urine Clarity Turbid H Clear Urine pH 5.0 5.0-9.0 Urine Specific [place] 1.031 1.001-1.035 Urine Protein Trace H Negative Urine Ketones 3+ H Negative Urine Blood 3+ H Negative /uL Urine Nitrite Negative Negative Urine Bilirubin Negative Negative Urine Urobilinogen Normal Negative mg/dL Urine Leukocyte Esterase 3+ Negative /uL Urine RBC 428 0 - 4 /hpf Urine WBC Clumps Present None Seen /hpf Urine Microscopic WBC 590 H 0-5 /HPF Urine Squamous Epithelial Cells None seen <5 /hpf Urine Bacteria Few H None Seen /hpf Urine Yeast (Budding) Occasional None Seen /hpf Urine Glucose 4+ H Normal mg/dL Sodium Level 135 L 136-145 mmol/L Potassium Level 3.9 3.5-5.1 mmol/L Chloride Level 97 L 98-107 mmol/L Carbon Dioxide Level 20 20-31 mmol/L Anion Gap 18 H 5-15 Blood Urea Nitrogen 23 9-23 mg/dL Creatinine 1.08 H 0.550-1.02 mg/dL Glomerular Filtration Rate Calc 53 >90 mL/min BUN/Creatinine Ratio 21.3 H 10.0-20.0 Serum Glucose 338 H 74-106 mg/dL Calcium Level 9.9 8.7-10.4 mg/dL Troponin I High Sensitivity 202 *H </=34 ng/L POC Glucose 295 H 70-106 mg/dl White Blood Count 7.2 4.4-10.8 10^3/uL Red Blood Count 4.48 4.0-5.20 10^6/uL Hemoglobin 14.7 12.2-16.2 g/dL Hematocrit 41.4 36.0-46.0 % Mean Corpuscular Volume 92.5 80.0-100.0 fL Mean Corpuscular Hemoglobin 32.8 H 28.0-32.0 pg Mean Corpuscular Hemoglobin Concent 35.5 32.0-36.0 g/dL Red Cell Distribution Width 14.9 H 11.8-14.3 % Platelet Count 146 140-450 10^3/uL Mean Platelet Volume 9.7 6.9-10.8 fL Neutrophils (%) (Auto) 79.3 37.0-80.0 % Lymphocytes (%) (Auto) 11.3 10.0-50.0 % Monocytes (%) (Auto) 8.3 0.0-12.0 % Eosinophils (%) (Auto) 0.8 0.0-7.0 % Basophils (%) (Auto) 0.3 0.0-2.0 % Neutrophils # (Auto) 5.7 1.6-8.6 10 ^3/uL Lymphocytes # (Auto) 0.8 0.4-5.4 10 ^3/uL Monocytes # (Auto) 0.6 0-1.3 10 ^3/uL Eosinophils # (Auto) 0.1 0-0.8 10 ^3/uL Basophils # (Auto) 0 0-0.2 10 ^3/uL Nucleated Red Blood Cells 0.0 % B-Type Natriuretic Peptide 506.13 0-100 pg/mL SEPSIS Sepsis Screen Date sepsis recognized/suspect: Oct 21, 2024 Time Sepsis recognized/suspect: 1314 Recent Procedure: No On Antibiotic Therapy: No Respiratory Rate >20: No Heart Rate >90: Yes Temp<36 C (96.8 F) or >38.3 C: No SBP <90 or MAP <65 mmHG: No New Acute Mental Status Change: No Is the patient on CPAP, BIPAP,: No Physician Orders Electrocardigram (10/21/24 14:43) Troponin-I Hs (10/21/24 20:38) Empagliflozin (Jardiance) (10/22/24 10:00) Lisinopril Tablet (Zestril Tablet) (10/22/24 10:00) Atenolol Tablet (Tenormin Tablet) (10/22/24 10:00) Aspirin Tablet (10/22/24 10:00) Atorvastatin (Lipitor) (10/21/24 22:00) Basic Metabolic Panel (10/22/24 04:00) Glucose Blood (Accu-Chek Comfort Curve T (10/21/24 22:00) Insulin R (Human) (Insulin R) (10/21/24 22:00) Dextrose 50% Syringe (10/21/24 19:45) Admit (10/21/24 19:38) Ondansetron Hcl (Zofran) (10/21/24 19:45) Cardiac Diet-2gna,Lofat,Lochol (10/22/24 Breakfast) Echo 2d Mode Cardiac Dop (10/21/24 19:38) Condition: Fair (10/21/24 19:38) Bedrest With Bathroom Privileg (10/21/24 19:38) Nitroglycerin Sublingual (Ntrostat Subli (10/21/24 19:45) Morphine Sulfate Injection (10/21/24 19:45) Stat Ekg For Chest Pain (10/21/24 19:38) Notify Md Of Changes From Base (10/21/24 19:38) Boiler Erector For 24 Hours (10/21/24 19:38) Emergency Dysrhythmia Protocol (10/21/24 19:38) Rhythm Strips Once Every Shift (10/21/24 19:38) Oxygen By Nasal Cannula (10/21/24 19:38) Furosemide Injection (Lasix Injection) (10/22/24 10:00) Vital Signs Date Time Temp Pulse Resp B/P (MAP) Pulse Ox O2 Delivery O2 Flow Rate FiO2 10/21/24 20:45 98.1 111 24 114/65 (81) 97 98.1 10/21/24 16:30 111 18 149/53 (85) 96 10/21/24 14:20 113 Laboratory Tests Test 10/21/24 14:08 White Blood Count 7.2 10^3/uL (4.4-10.8) Medications Medications Dose Ordered Sig/Rachell Route Start Time Stop Time Status Last Admin Dose Admin Enoxaparin Sodium 70 mg ONCE ONCE SC 10/21/24 17:00 10/21/24 17:01 DC 10/21/24 17:50 70 MG Assessment/Plan Assessment/Plan Assessment Acute congestive heart failure Elevated troponin, possible demand ischemia Diabetes mellitus UTI Hypertension Plan Admit the patient to telemetry to the hospitalist Cardiology consult Resume home medications IV Lasix Continue treatment per orders. Plan discussed with: Patient My Orders Orders - ANETA MOLINA Procedure Category Date Status Time Troponin-I Hs LAB 10/21/24 Logged 20:38 Empagliflozin PHA 10/22/24 In Process (Jardiance) 10:00 Lisinopril Tablet PHA 10/22/24 In Process (Zestril Tablet) 10:00 Atenolol Tablet PHA 10/22/24 In Process (Tenormin Tablet) 10:00 Aspirin Tablet PHA 10/22/24 In Process 10:00 Atorvastatin (Lipitor) PHA 10/21/24 In Process 22:00 Basic Metabolic Panel LAB 10/22/24 Verified 04:00 Glucose Blood PHA 10/21/24 In Process (Accu-Chek Comfort 22:00 Insulin R (Human) PHA 10/21/24 In Process (Insulin R) 22:00 Dextrose 50% Syringe PHA 10/21/24 In Process 19:45 Admit ADMIT 10/21/24 Transmitted 19:38 Ondansetron Hcl PHA 10/21/24 In Process (Zofran) 19:45 Cardiac DIET 10/22/24 Transmitted Diet-2gna,Lofat,Lochol Breakfast Echo 2d Mode Cardiac US 10/21/24 Logged DOP 19:38 Condition: Fair SHERRI 10/21/24 In Process 19:38 Bedrest With Bathroom SHERRI 10/21/24 In Process Privileg 19:38 Nitroglycerin PHA 10/21/24 In Process Sublingual (Ntrostat 19:45 Morphine Sulfate PHA 10/21/24 In Process Injection 19:45 Stat Ekg For Chest SHERRI 10/21/24 In Process Pain 19:38 Notify Of Changes [facility] 10/21/24 In Process From Base 19:38 Boiler Erector For [facility] 10/21/24 In Process 24 Hours 19:38 Emergency Dysrhythmia [facility] 10/21/24 In Process Protocol 19:38 Rhythm Strips Once [facility] 10/21/24 In Process Every Shift 19:38 Oxygen By Nasal RT 10/21/24 Transmitted Cannula 19:38 Furosemide Injection PHA 10/22/24 In Process (Lasix Injection) 10:00 Date of Service: Oct 21, 2024 Billing Provider: ANETA MOLINA Common Visit Codes: [id number] INP/OBS CARE (HIGH) ANETA MOLINA Oct 21, 2024 22:17
[2024-10-21 22:38] LABS: Cholesterol 165 mg/dL (< 200)
[2024-10-21 22:56] LABS: HDL Cholesterol 35 mg/dL (40-59); Triglycerides 169 mg/dL (< 150)
[2024-10-22] MEDS: ACCU-CHEK COMFORT CURVE STRIP VI SCH (01:09)
[2024-10-22] MEDS: InsuLIN REG 1unit/0.01ml Soln (100units/ml) SC SCH (01:12)
[2024-10-22] MEDS: ATORVASTATIN 20 MG TAB PO SCH (01:13)
[2024-10-22 04:52] VITALS: BP 120/78; PULSE 103; RESP 16; O2SAT 95
[2024-10-22 05:20] VITALS: BP 120/56; PULSE 104; RESP 16; TEMP 97.8; O2SAT 95
[2024-10-22 08:00] VITALS: PULSE 98; O2SAT 98
[2024-10-22 08:47] VITALS: BP 112/53; PULSE 86; RESP 18; TEMP 98.4; O2SAT 98
[2024-10-22 09:08] LABS: Chloride 101 mmol/L (98-107); Potassium 3.7 mmol/L (3.5-5.1); Sodium 138 mmol/L (136-145)
[2024-10-22 09:09] LABS: Anion Gap 14 (5-15); Carbon Dioxide 23 mmol/L (20-31)
[2024-10-22 09:10] LABS: Calcium 9.4 mg/dL (8.7-10.4)
[2024-10-22] MEDS: cefTRIAXone 1GM/50ML D5W 50 ML IV SCH (09:13)
[2024-10-22 09:15] LABS: BUN/Creatinine Ratio 25.3 (10.0-20.0); Blood Urea Nitrogen 22 mg/dL (9-23); Glucose 200 mg/dL (74-106)
[2024-10-22] MEDS: EMPAGLIFLOZIN 10 MG TAB PO SCH (09:15)
[2024-10-22] MEDS: ATENOLOL 25 MG TAB PO SCH (09:16)
[2024-10-22] MEDS: LISINOPRIL 20 MG TAB PO SCH (09:17)
[2024-10-22] MEDS: FUROSEMIDE 20 MG/2 ML VIAL IV SCH (09:17)
[2024-10-22 12:52] VITALS: BP 106/61; PULSE 92; RESP 14; TEMP 97.9; O2SAT 95
[2024-10-22] MEDS ORDERED: CIPR-273 PO (13:13)
[2024-10-22] MEDS ORDERED: FURO1TAB33 PO (13:13)
--- NOTE | 2024-10-22 13:32 | DVHDS2 ---
Discharge Summary Date of Admission Oct 21, 2024 at 19:38 Date of Discharge: Oct 22, 2024 Labs/Diagnostic Data: Laboratory Results Test 10/22/24 11:47 10/22/24 08:45 10/21/24 22:44 10/21/24 21:30 POC Glucose 278 mg/dl (70-106) Sodium Level 138 mmol/L (136-145) Potassium Level 3.7 mmol/L (3.5-5.1) Chloride Level 101 mmol/L (98-107) Carbon Dioxide Level 23 mmol/L (20-31) Anion Gap 14 (5-15) Blood Urea Nitrogen 22 mg/dL (9-23) Creatinine 0.87 mg/dL (0.550-1.02) Glomerular Filtration Rate Calc 68 mL/min (>90) BUN/Creatinine Ratio 25.3 (10.0-20.0) Serum Glucose 200 mg/dL (74-106) Calcium Level 9.4 mg/dL (8.7-10.4) Troponin I High Sensitivity 190 ng/L (</=34) Urine Color Colorless (Yellow) Urine Clarity Turbid (Clear) Urine pH 5.0 (5.0-9.0) Urine Specific [place] 1.031 (1.001-1.035) Urine Protein Trace (Negative) Urine Ketones 3+ (Negative) Urine Blood 3+ /uL (Negative) Urine Nitrite Negative (Negative) Urine Bilirubin Negative (Negative) Urine Urobilinogen Normal mg/dL (Negative) Urine Leukocyte Esterase 3+ /uL (Negative) Urine RBC 428 /hpf (0 - 4) Urine WBC Clumps Present /hpf (None Seen) Urine Microscopic WBC 590 /HPF (0-5) Urine Squamous Epithelial Cells None seen /hpf (<5) Urine Bacteria Few /hpf (None Seen) Urine Yeast (Budding) Occasional /hpf (None Urine Glucose 4+ mg/dL (Normal) Test 10/21/24 20:47 10/21/24 14:08 Triglycerides Level 169 mg/dL (< 150) Cholesterol Level 165 mg/dL (< 200) LDL Cholesterol 120 mg/dL (< 100) HDL Cholesterol 35 mg/dL (40-59) Thyroid Stimulating Hormone (TSH) 1.89 uIU/mL (0.55-4.78) White Blood Count 7.2 10^3/uL (4.4-10.8) Red Blood Count 4.48 10^6/uL (4.0-5.20) Hemoglobin 14.7 g/dL (12.2-16.2) Hematocrit 41.4 % (36.0-46.0) Mean Corpuscular Volume 92.5 fL (80.0-100.0) Mean Corpuscular Hemoglobin 32.8 pg (28.0-32.0) Mean Corpuscular Hemoglobin Concent 35.5 g/dL (32.0-36.0) Red Cell Distribution Width 14.9 % (11.8-14.3) Platelet Count 146 10^3/uL (140-450) Mean Platelet Volume 9.7 fL (6.9-10.8) Neutrophils (%) (Auto) 79.3 % (37.0-80.0) Lymphocytes (%) (Auto) 11.3 % (10.0-50.0) Monocytes (%) (Auto) 8.3 % (0.0-12.0) Eosinophils (%) (Auto) 0.8 % (0.0-7.0) Basophils (%) (Auto) 0.3 % (0.0-2.0) Neutrophils # (Auto) 5.7 10 ^3/uL (1.6-8.6) Lymphocytes # (Auto) 0.8 10 ^3/uL (0.4-5.4) Monocytes # (Auto) 0.6 10 ^3/uL (0-1.3) Eosinophils # (Auto) 0.1 10 ^3/uL (0-0.8) Basophils # (Auto) 0 10 ^3/uL (0-0.2) Nucleated Red Blood Cells 0.0 % B-Type Natriuretic Peptide 506.13 pg/mL (0-100) Other Laboratory Tests 10/22/24 08:45 10/21/24 14:08 Brief Hx & Hospital Course: 79 year old female came for SOB She was to have UTI, Given Lasix, Benitez catheter was inserted Today she was doing well, asymptomatic Feels better, wants to go home DC Benitez DC home on Lasix 20 mg qd Cipro 20 mg bid x 7 days Final diagnoses: UTI Acute congestive heart failure, diastolic Elevated troponin, possible demand ischemia Diabetes mellitus Hypertension Condition at Discharge: Stable Final Diagnosis/Problems List UTI Discharge Disposition: Home SNF Discharge Will this Physician continue t: No Discharge Instruct/Medications Diet: Consistent carbohydrate, Cardiac 2g Na,low cholest Activity: No Restrictions, As Tolerated Follow Up/Referral: PCP TERRI Medications: Lasix 20 mg qd Cipro 250 mg bid x 7 days Scheduled Aspirin (Aspir-Low), 81 MG PO DAILY, (Reported) Atenolol (Atenolol), 25 MG PO DAILY, (Reported) Ciprofloxacin Hcl (Cipro), 250 MG PO BID Empagliflozin (Jardiance), 25 MG PO DAILY, (Reported) Furosemide (Lasix), 1 TAB PO DAILY Lisinopril (Lisinopril), 1 TAB PO DAILY, (Reported) Meloxicam (Meloxicam), 1 TAB PO DAILY, (Reported) Metformin Hydrochloride (Glucophage), 1 TAB PO BID, (Reported) Pantoprazole Sodium Sesquihydr (Protonix), 40 MG PO DAILY, (Reported) Simvastatin (Simvastatin), 1 TAB PO QPM, (Reported) Triamcinolone Acetonide (Triamcinolone Acetonide), 1 APPLIC TOP BID, (Reported) Venlafaxine Hydrochloride (Venlafaxine Hcl), 37.5 MG PO BID, (Reported) Discharge Statement: "Patient was advised to return to the ER or call 911 if any headaches, dizziness, shortness of breath, chest pain, abdominal pain, bleeding, fevers, or worsening of medical condition. Patient was counseled about treatment plan, medications, possible side effects, patientverbalized understanding. All questions were answered to the best of my ability. This discharge took greater then 30 minutes in planning, reviewing documentation, counseling the patient, and discussing with other team members." ASSESSMENT ASSESSMENT Assessment UTI Date of Service: Oct 22, 2024 Billing Provider: LYNDA KELLY MD Common Visit Codes: [id number]/[id number] DISCH DAY >30min LYNDA KELLY MD Oct 22, 2024 13:32
[2024-10-22 15:31] VITALS: BP 112/63; PULSE 98; RESP 14; TEMP 97.9; O2SAT 95
== END 2024-10-22 16:53 | disposition home or self-care (01) | DRG 291 ==
LOC: ER 13:12 → OVERFLOW 19:38 → TELE-EAST 10-22 03:56
PROVIDERS: ADMIT Internal Medicine Geriatric Medicine; ATTEND Internal Medicine Geriatric Medicine
DX: I11.0 Hypertensive heart disease with heart failure (principal); I50.31 Acute diastolic (congestive) heart failure; I24.89 Other forms of acute ischemic heart disease; N39.0 Urinary tract infection, site not specified; E11.9 Type 2 diabetes mellitus without complications; E78.5 Hyperlipidemia, unspecified; Z90.710 Acquired absence of both cervix and uterus; Z88.6 Allergy status to analgesic agent; Z88.5 Allergy status to narcotic agent; Z88.2 Allergy status to sulfonamides; Z85.89 Personal history of malignant neoplasm of other organs and systems
CPT/HCPCS: 36415; 71045; 80048; 80061; 81001; 82962; 83880; 84443; 84484; 85025; 93005; 93306; 96365; 96372; 99291; 99292; G0378; J1815

== ENCOUNTER → 2024-11-27 | Outpatient (CLI) | payer OTHER ==
[~2024-11-27] MED LIST changes: +CIPR-273 PO; +FURO1TAB33 PO
[2024-11-27 10:42] LABS: Hematocrit 40.7 % (36.0-46.0); Hemoglobin 14.1 g/dL (12.2-16.2); Mean Corpuscular Hemoglobin 32.1 pg (28.0-32.0); Mean Corpuscular Volume 92.3 fL (80.0-100.0); Nucleated Red Blood Cells % 0.0 %
[2024-11-27 11:05] LABS: Alanine Aminotransferase 12 U/L (7-40); Albumin 4.3 g/dL (3.2-4.8); Alkaline Phosphatase 61 U/L (46-116); Anion Gap 11 (5-15); BUN/Creatinine Ratio 14.3 (10.0-20.0); Bilirubin, Total 0.8 mg/dL (0.2-1.0); Blood Urea Nitrogen 10 mg/dL (9-23); Calcium 9.4 mg/dL (8.7-10.4); Carbon Dioxide 26 mmol/L (20-31); Chloride 103 mmol/L (98-107); Cholesterol 128 mg/dL (< 200); HDL Cholesterol 42 mg/dL (40-59); Potassium 3.8 mmol/L (3.5-5.1); Sodium 140 mmol/L (136-145); Total Protein 6.8 g/dL (5.7-8.2); Triglycerides 94 mg/dL (< 150)
[2024-11-27 11:06] LABS: Glucose 201 mg/dL (74-106); Microalb/Creat Ratio, Urine 764.0
== END | disposition home or self-care (01) ==
LOC: LAB 10:10
PROVIDERS: ATTEND Nurse Practitioner Family
DX: E11.39 Type 2 diabetes mellitus with other diabetic ophthalmic complication (principal); E66.9 Obesity, unspecified; I42.9 Cardiomyopathy, unspecified; Z00.01 Encounter for general adult medical examination with abnormal findings; Z79.899 Other long term (current) drug therapy
CPT/HCPCS: 36415; 80053; 80061; 82043; 82306; 82570; 83036; 84443; 85025; 86431

== ENCOUNTER 2025-01-07 09:46 | Day surgery (SDC) | payer OTHER ==
[2025-01-02 12:13] LABS: Hematocrit 39.0 % (36.0-46.0); Hemoglobin 13.2 g/dL (12.2-16.2); Mean Corpuscular Hemoglobin 31.1 pg (28.0-32.0); Mean Corpuscular Volume 92.1 fL (80.0-100.0); Nucleated Red Blood Cells % 0.0 %
[2025-01-02 12:16] LABS: Urine Budding Yeast FEW /hpf (None Seen); Urine Protein, UAD 1+ (Negative)
[2025-01-02 12:24] LABS: INR 1.03 (0.9-1.15); Partial Thromboplastin Time 26.2 SEC (24.5-34.5); Prothrombin Time 10.9 sec (9.3-11.8)
[2025-01-02 13:05] LABS: Albumin 4.1 g/dL (3.2-4.8); Alkaline Phosphatase 61 U/L (46-116); Anion Gap 12 (5-15); BUN/Creatinine Ratio 15.9 (10.0-20.0); Bilirubin, Total 0.6 mg/dL (0.2-1.0); Blood Urea Nitrogen 11 mg/dL (9-23); Calcium 9.2 mg/dL (8.7-10.4); Carbon Dioxide 27 mmol/L (20-31); Chloride 101 mmol/L (98-107); Potassium 4.1 mmol/L (3.5-5.1); Sodium 140 mmol/L (136-145); Total Protein 6.7 g/dL (5.7-8.2)
[2025-01-02 13:09] LABS: Alanine Aminotransferase < 9 U/L (7-40); Glucose 199 mg/dL (74-106)
[~2025-01-07] VITALS: Ht 160 cm; Wt 72.6 kg
[~2025-01-07 09:46] MED LIST changes: +ALEN35TA18 PO; -CIPR-273 PO; +DICY20TA PO; -FURO1TAB33 PO; -TRIA0.1O TOP
[2025-01-07] MEDS ORDERED: CIPROFLOXACIN 400 MG/200 ML IV ONE (09:47)
[2025-01-07] MEDS ORDERED: fentaNYL CITRATE 100 MCG/2 ML VL ONE (10:25)
[2025-01-07] MEDS ORDERED: MIDAZOLAM HCL 2MG/2ML 2ml VIAL (1mg/ml) ONE (10:27)
[2025-01-07] MEDS ORDERED: PROPOFOL 10 MG/ML 20 ML IV ONE (10:38)
[2025-01-07] MEDS ORDERED: MIDAZOLAM HCL 2MG/2ML 2ml VIAL (1mg/ml) IV PRN (10:45)
[2025-01-07] MEDS ORDERED: hydrALAZINE HCL 20 MG/ML VL IV PRN (10:45)
[2025-01-07] MEDS ORDERED: ONDANSETRON HCL 4 MG/2 ML VIAL IV PRN (10:45)
[2025-01-07] MEDS ORDERED: MORPHINE SULFATE 4 MG/ML SYR/VIAL IV PRN (10:45)
[2025-01-07] MEDS ORDERED: HYDROmorphone HCL 2 MG/ML VL/or syr IV PRN (10:45)
--- NOTE | 2025-01-07 11:00 | DVHNC2 ---
Procedure - OPERATIVE REPORT Pre-op. Diagnosis: Stress Urinary Incontinence Intrinsic Sphincteric Deficiency Post-op. 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 Indications, risks, complications, alternatives and benefits of cystoscopy with injection of bulking agent were discussed with patient. All questions were encouraged and answered. Patient is aware of specific risks/complications inc luding but not limited to infection, bleeding, persistent urinary hematuria, urinary incontinence and urinary retention. Informed consent was obtained. Details of Procedure: Patient is taken to Operating suite and given appropriate anesthesia. After prepping and draping, the patient was placed in the lithotomy position. A 21 F rigid cystoscope was introduced and the bladder was emptied. Next, the scope was positioned in the urethra and injection of Coaptite (Bulking agent) at 4 thru 8 O'clock position using a long transurethral needle was performed. Fluoroscopy was utilized to confirm the proper placement of the radioopaque bulking agent. Coaptation of bladder neck was noted. Bladder was emptied. Patient tolerated the procedure well. Patient is awakened and taken to RR in stable condition. Specimens: None Complications: None Findings: Notes: DISPOSITION: Discharge to home after voided . RTC 2 weeks. VISHNU NAJERA MD Jan 07, 2025 11:00
[2025-01-07 11:02] VITALS: PULSE 80; RESP 13; TEMP 96.7
--- NOTE | 2025-01-07 11:02 | DVHDS2 ---
New Physician D'charge PN Admitting Diagnosis Admitting Diagnosis Stress urinary incontinence Discharge Diagnosis Same Operations or Procedures Trans urethral injection of Coaptite Reason(s) For Hospitalization Surgery Treatment Plan Discharge Condition of Discharge Good Disposition Home Discharge Instructions Diet: Regular Activity: Light activity Activity comment: As tolerated Medications: Given Follow Up Care Follow Up/Referral: Two weeks Discharge Statement: "Patient was advised to return to the ER or call 911 if any headaches, diz ziness, shortness of breath, chest pain, abdominal pain, bleeding, fevers, or worsening of medical condition. Patient was counseled about treatment plan, medications, possible side effects, patientverbalized understanding. All questions were answered to the best of my ability. This discharge took greater then 30 minutes in planning, reviewing documentation, counseling the patient, and discussing with other team members." VISHNU NAJERA MD Jan 07, 2025 11:02
[2025-01-07 11:17] VITALS: PULSE 82; RESP 13
[2025-01-07] MEDS: SODIUM CHL 0.9% 500 ML BAG IVB ONE (12:35)
[2025-01-07] MEDS ORDERED: SODIUM CHLORIDE 0.9% 500 ML IV ONE (12:45)
[2025-01-07 13:30] VITALS: BP 179/77; O2SAT 95
--- NOTE | 2025-01-10 13:45 | DVH ---
C-ARM FLUOROSCOPY: PROCEDURE: Coaptite Injection FLUOROSCOPY TIME: 3.6 sec DAP: 0.72 mgy FINDINGS: Spot intraoperative C arm radiographs demonstrating Coaptite Injection. IMPRESSION: Please refer to surgical report for detailed findings.
== END 2025-01-07 14:02 | disposition home or self-care (01) ==
LOC: SUR 09:46
PROVIDERS: ATTEND Urology
DX: N39.3 Stress incontinence (female) (male) (principal); N36.42 Intrinsic sphincter deficiency (ISD); I50.9 Heart failure, unspecified; E11.9 Type 2 diabetes mellitus without complications; K21.9 Gastro-esophageal reflux disease without esophagitis; Z79.82 Long term (current) use of aspirin; Z79.899 Other long term (current) drug therapy; Z90.710 Acquired absence of both cervix and uterus; Z90.89 Acquired absence of other organs; Z85.42 Personal history of malignant neoplasm of other parts of uterus; Z98.890 Other specified postprocedural states; Z88.1 Allergy status to other antibiotic agents; Z88.2 Allergy status to sulfonamides; Z88.5 Allergy status to narcotic agent; Z88.8 Allergy status to other drugs, medicaments and biological substances; Z83.3 Family history of diabetes mellitus; Z82.49 Family history of ischemic heart disease and other diseases of the circulatory system
CPT/HCPCS: 36415; 51715; 74018; 80053; 81001; 82962; 85025; 85610; 85730; 87086; A4315; J0744; J1100; J2250; J2704; J3010; J7040; L8606; 76000

== ENCOUNTER 2025-01-10 07:05 | Emergency (ER) | payer OTHER ==
[~2025-01-10] VITALS: Ht 172.7 cm; Wt 84.0 kg
[2025-01-10 07:05] VITALS: BP 0/0; PULSE 0; RESP 0; TEMP 98.2; O2SAT 0
--- NOTE | 2025-01-10 07:23 | ED.PDOC ---
CPR-HPI HPI Comments This is a 79 year-old female BIB EMS for cardiac arrest. Per EMS, patient was down X40 minutes prior to ED arrival. EMS reports patient was last seen normal by family X4 hours ago. Per EMS, patient was given chest compressions X30 minutes, as well as, X6 rounds of Epi, X1 lidocaine, and X2 shocks administered en route. Upon arrival to the ED, patients pupils appear blown with no identified cardiac pulse. Chief Complaint: CPR Time Seen by MD: 07:02 Reviewed Notes: Medications, Allergies Allergies: Coded Allergies: Acetaminophen (Verified Allergy, Unknown, 01/03/25) Hydrocodone (Verified Allergy, Unknown, 01/03/25) Sulfa Antibiotics (Verified Allergy, Unknown, 01/03/25) Home Meds Reported Medications Alendronate Sodium (Alendronate Sodium) 35 Mg Tab, PO Q7D, TAB 01/03/25 Dicyclomine Hcl (Dicyclomine Hcl) 20 Mg Tab, PO, TAB 01/03/25 Empagliflozin (Jardiance) 25 Mg Tab, 25 MG PO DAILY, TAB 08/12/22 Venlafaxine Hydrochloride (Venlafaxine Hcl) 37.5 Mg Tab, 37.5 MG PO BID, TAB 08/12/22 Pantoprazole Sodium Sesquihydr (Protonix) 40 Mg Tab, 40 MG PO DAILY, #30 TAB 08/12/22 Simvastatin (Simvastatin) 10 Mg Tab, 1 TAB PO QPM, #30 TAB 5 Refills 09/14/15 Meloxicam (Meloxicam) 7.5 Mg Tab, 1 TAB PO DAILY, #30 TAB 2 Refills 09/14/15 Lisinopril (Lisinopril) 40 Mg Tab, 1 TAB PO DAILY, #30 TAB 5 Refills 09/14/15 Metformin Hydrochloride (Glucophage) 1,000 Mg Tab, 1 TAB PO BID, #60 TAB 5 Refills 09/14/15 Atenolol (Atenolol) 25 Mg Tab, 25 MG PO DAILY for 30 Days, MG 09/14/15 Aspirin (Aspir-Low) 81 Mg Tab, 81 MG PO DAILY for 30 Days, MG 09/14/15 Information Source: Emergency Med Personnel Mode of Arrival: EMS Timing: Minutes Duration: Down time prior EMS: (45 minutes ) Past Medical History PAST MEDICAL HISTORY: Cancer, DM, High Lipids, HTN Surgical History: Hysterectomy FINANCIAL AID DIRECTOR History: Denies all FINANCIAL AID DIRECTOR Hx, Unobtainable Family History Family History: Reviewed,noncontributory to illness Social History Smoker: Non-Smoker, Unobtainable Alcohol: Denies ETOH Use, Unobtainable Drugs: Denies Drug Use, Unobtainable Lives In: Home All Other Systems: Deferred Physical Exam General Appearance: Severe Distress HEENT: Other (Pupils fixed and dilated) Neck: NOT DONE Respiratory: Respiratory Distress, Other (Intubate the patient) Cardiovascular: Other (No pulse) Breast Exam: Deferred Gastrointestinal: Soft Genitalia: Deferred Pelvic: Deferred Rectal: Deferred Extremities: NOT DONE Neurologic: Other (Unconscious) Cerebellar Function: NOT DONE Reflexes: NOT DONE Skin: Pallor Peripheral Pulses: 0 Radial (R), 0 Radial (L) Lymphatic: NOT DONE Was a procedure done? Was a procedure done?: Yes Sedation Sedation?: No Intubation Indication: Respiratory Insufficiency Prep: Preoxygenation Pretreated with: Analgesia Intubation Approach: Orotracheal Intubation size: cm (8) Differential Dx CPR Differential Diagnosis: Cardiopulmonary arrest X-Ray, Labs, Meds, VS Vital Signs Date Time Temp Pulse Resp B/P (MAP) Pulse Ox O2 Delivery O2 Flow Rate FiO2 01/10/25 08:12 203.0 0 Ambu-Bag 0 01/10/25 07:05 98.2 0 0 0/0 0 98.2 Patient unconscious pain Had to intubate the patient. Did not have ET tube for more than 35 minutes. CPR in progress. Transfer CPR. Waiting for family. Continued ACLS medication. Asystole throughout. No airway protection upon arrival. Secure airway immediately in the ER. Was given lidocaine in the field. Asystole throughout. Spoke with the team. Had to pronounce. Waiting for family. Images Reviewed?: Images reviewed and evaluated by me Time of 1ST Reevaluation: 07:18 Reevaluation 1ST: Unchanged Patient Education/Counseling: Pt Unresponsive Family Education/Counseling: No Family Present SEPSIS Sepsis Screen Vital Signs Date Time Temp Pulse Resp B/P (MAP) Pulse Ox O2 Delivery O2 Flow Rate FiO2 01/10/25 08:12 203.0 0 Ambu-Bag 0 01/10/25 07:05 98.2 0 0 0/0 0 98.2 Departure 1 Departure Time of Disposition: 07:44 Impression: Primary Impression: Cardiac arrest Disposition: 20 Condition: Serious Critical Care Note Critical Care Time?: Yes (30 min-critical care time only) Heart Score Heart Score: Heart Score Response (Comments) Value History Highly Suspicious 2 EKG N/A 0 Age >65 2 Risk Factors 1 or 2 risk factors 1 Troponin N/A 0 Total 5 Stability Stability form required: No I personally scribed for RIC COON MD ([email or web address]) on 01/10/25 at 07:23. Electronically submitted by Kyra Gerard ([facility]). RIC COON MD Jan 10, 2025 07:23
--- NOTE | 2025-01-10 08:12 | RESUS ---
CODE BLUE ASSESSSMENT History of Events History of Events: Brought in by ambulance with CPR in progress. Per EMS, patient down and CPR in progress for 30 minutes prior to arrival. Received 6 rounds of epinephrine, 1 dose of lidocaine, and was defibrillated twice by EMS. Presents with CPR in progress. Initial Information Date: Jan 10, 2025 Time: 06:54 Location of Arrest: In Field Arrest Witnessed: No CPR started by whom: EMS Last seen well: 0200 Pre-Hospital Care: ACLS Type of arrest: Cardiac Spontaneous Respirations: No Pulse Present: No Monitoring: ECG, Pulse Oximetry, Telemetry Crash Cart Opened and Supplies: Yes Airway Ventilation Breathing at Onset: Assisted Oxygen Delivery Method: Ambu-Bag Artificial Ventilation: Bag/Endo tube Intubation Size: 7.5 cuffed Intubated by: Andres RODRIGUEZ Intubation Attempts: 1 Intubated orally: Yes Tube secured at: 24 CO2 indicator used: Yes Confirmation: Auscultation, Exhaled CO2 Suctioning (Oral/Tracheal): Yes Circulation Circulation : Time: 06:55 Pulse Rate (adult): 0 Blood Pressure Systolic: 0 Blood Pressure Diastolic: 0 Temperature (Fahrenheit): 95.0 Procedure - IV Procedure - IV : IV start time: 06:56 IV Side: Right IV Location: Antecubital IV Catheter Type: Saline Lock IV Placed: In Hospital IV Gauge: 20 IV Line Care: Saline Flush Procedure - Intraosseous Site of Intraosseous: Tibia venkatesh-medial Number of attempts for Intraos: 1 Medications & Response Medications and Responses #1: Medication Time: 06:56 ADULT Medications Given ADULT: Epinephrine 1 mg Route of Administration: IV Heart Rate: 0 EKG Rhythm: Asystole Blood Pressure Systolic: 0 Blood Pressure Diastolic: 0 EKG Rhythm: Asystole Medications and Responses #2: Medication Time: 06:57 ADULT Medications Given ADULT: Sodium Bacarbinate 50 meq Route of Administration: IO Heart Rate: 0 EKG Rhythm: Asystole EKG Rhythm: Asystole Medications and Responses #3: Medication Time: 06:58 ADULT Medications Given ADULT: Epinephrine 1 mg Route of Administration: IV Heart Rate: 0 EKG Rhythm: Asystole EKG Rhythm: Asystole Nurses Notes [place] Coma Scale Eye Opening: None (1) [place] Coma Scale Verbal: None (1) [place] Coma Scale Motor: None (1) Pupil Reaction: Non Reactive EKG Rhythm: Asystole Nurses Notes - Comment: Blood glucose read "HI" x 2 Time Code Ended Time Code Ended: 06:58 Post Arrest Status: Outcome of code: Unsuccessful Patient pronounced by: Dr. Manzano Time patient pronounced: 06:58 Family notified: Yes Attending called: No Code Team Present: Dr. Manzano, Andres RT, Grant RT, Manoj EMT, Iván EMT, Henri RN, Shani RN, Kasey RN, Ryann RN, [place] RN Post Resuscitation Neurologica Pupil Size: 7 [place] [facility] Jan 10, 2025 08:12
== END 2025-01-10 07:45 ==
LOC: ER 07:05
DX: I46.9 Cardiac arrest, cause unspecified (principal); I10 Essential (primary) hypertension; E11.9 Type 2 diabetes mellitus without complications; E78.5 Hyperlipidemia, unspecified; Z79.899 Other long term (current) drug therapy; Z79.84 Long term (current) use of oral hypoglycemic drugs; Z79.82 Long term (current) use of aspirin; Z88.5 Allergy status to narcotic agent; Z88.2 Allergy status to sulfonamides; Z79.83 Long term (current) use of bisphosphonates; Z79.1 Long term (current) use of non-steroidal anti-inflammatories (NSAID); Z90.710 Acquired absence of both cervix and uterus
CPT/HCPCS: 31500; 82947; 92950; 99291